=== PATIENT | male | born 1975 | race African-American/Black ===

== ENCOUNTER 2018-02-13 10:02 | Day surgery (SDC) | payer OTHER ==
[2018-02-12 14:40] VITALS: BMI 31.1
[2018-02-13] MEDS ORDERED: DEXAMETHASONE SOD PHOSPHATE/PF 10 MG/ML SDV ONE (11:50)
[2018-02-13] MEDS ORDERED: MIDAZOLAM HCL 2 MG/2 ML SINGLE DOSE VIAL ONE (11:50)
[2018-02-13] MEDS ORDERED: ROPIVACAINE HCL 0.5% 30ML VIAL ONE (11:51)
[2018-02-13] MEDS ORDERED: BUPIVACAINE HCL 0.25% 125 MG/50 ML VIAL ONE (12:33)
[2018-02-13] MEDS ORDERED: ONDANSETRON 4 MG/2 ML VIAL ONE (12:46)
[2018-02-13] MEDS ORDERED: ceFAZolin SODIUM 1 GM VIAL ONE (12:46)
[2018-02-13] MEDS ORDERED: DEXAMETHASONE SOD PHOSPHATE 4 MG/1 ML VIAL ONE (12:46)
[2018-02-13] MEDS ORDERED: LIDOCAINE HCL 2% JELLY (5 ML/TUBE) ONE (13:07)
[2018-02-13] MEDS ORDERED: hydrALAZINE HCL 20 MG/ML VIAL ONE (13:10)
[2018-02-13] MEDS ORDERED: KETAMINE HCL 200 MG/20 ML VIAL ONE (13:11)
[2018-02-13] MEDS ORDERED: GLYCOPYRROLATE 0.2 MG/1 ML VIAL ONE (13:11)
[2018-02-13] MEDS ORDERED: ONDANSETRON 4 MG/2 ML VIAL IVPUSH PRN (14:33)
[2018-02-13] MEDS ORDERED: oxyCODONE HCL 5 MG TABLET PO PRN ×2 (14:33)
[2018-02-13] MEDS ORDERED: PROMETHAZINE HCL 25 MG/1 ML VIAL IVPB PRN (14:33)
[2018-02-13 16:33] VITALS: PULSE 78; TEMP 99.2
[2018-02-13 16:59] VITALS: BP 136/80
--- NOTE | 2018-02-13 20:37 | OP ---
DATE OF OPERATION: 02/13/2018 LOCATION: [facility]. SURGEON: Joe George MD FINNISH RUBBER: DION Loomis PREOPERATIVE DIAGNOSIS: Right Achilles tendon tear. POSTOPERATIVE DIAGNOSIS: Right Achilles tendon tear. PROCEDURE: Right Achilles tendon repair. FINDINGS: Extensive tearing of proximal third of Achilles tendon with extensive disruption into the musculotendinous junction. DESCRIPTION OF PROCEDURE: Informed consent was obtained. He was brought to the operating room, where the right lower extremity was prepped and draped in a sterile fashion. Patient was placed in prone position, and peroneal block was performed. Incision was made after tourniquet was inflated to 300 mmHg. Incision made centrally, approximately 12 cm in length. The necrotic central portions of the tear were debrided, and the proximal and distal portions were released from surrounding scar tissue. A number 5 Ethibond Krackow stitch was placed through the proximal and distal stumps with a number 2 FiberWire used to catch some of the disrupted tissue to use as a supplemental graft. The 2 ends were then secured centrally. This was oversewn with a number 2 FiberWire and figure-of-8 interrupted sutures, and copious amounts of irrigation were used throughout the procedure. Layered closure of deep 2-0 Vicryl, 2-0 subcutaneous, and renato were used to close the skin. Sterile dressing and splint were placed. The patient was transferred to the recovery room without complication. JOE GEORGE M.D. [id number]
== END 2018-02-13 16:00 | disposition home or self-care (01) ==
LOC: FASU 10:02
PROVIDERS: ATTEND Orthopaedic Surgery
PROC: 0LQN0ZZ Repair Right Lower Leg Tendon, Open Approach (ICD-10-PCS; principal; 2018-02-13 13:11)
DX: S86.011A Strain of right Achilles tendon, initial encounter (principal); X58.XXXA Exposure to other specified factors, initial encounter; Y93.9 Activity, unspecified; Y92.9 Unspecified place or not applicable
CPT/HCPCS: 94760